=== PATIENT | male | born 1945 | race Caucasian/White ===

== ENCOUNTER 2019-01-19 09:49 | Emergency (ER) | payer BC, MEDICARE ==
[2019-01-19] MEDS: Aspirin 81 MG Tab.Chew PO ONE (10:00)
[2019-01-19] MEDS: Sodium Chloride 0.9% 1,000 ML IV ONE (10:05)
[2019-01-19] MEDS: Sodium Chloride 0.9% 10 ML Syringe FLUSH PRN (10:05)
[2019-01-19] MEDS: Nitroglycerin 0.4 MG Tab.SL SL ONE (10:11)
[2019-01-19] MEDS: Heparin Sodium 5,000 Units/ML Vial IVPUSH ONE (10:18)
[2019-01-19] MEDS: Morphine 2 MG/ML Syringe IVPUSH ONE (10:20)
[2019-01-19 10:23] VITALS: BP 116/64
[2019-01-19 10:23] LABS: ANION GAP 15.6 mmol/L (10-20); CHLORIDE,CL 99 mmol/L (98-107); SODIUM,NA 137 mmol/L (136-145)
--- NOTE | 2019-01-19 10:27 | EDM.PDOC ---
ED HPI GENERAL MEDICAL PROBLEM - General Chief Complaint: Chest Pain Stated Complaint: ER VISIT Time Seen by Provider: 01/19/19 09:54 Source of Information: Reports: Patient, Old Records, RN, RN Notes Reviewed History Limitations: Reports: No Limitations - History of Present Illness INITIAL COMMENTS - FREE TEXT/NARRATIVE: Patient is brought to the emergency room from [facility] for chest pain and possible NM. The patient states that a couple of days ago he started having some sweating and mild substernal chest pain. The patient felt it was from him doing physical therapy so he basically ignored it. The patient's symptoms have progressively gotten worse over the past 24 hours therefore he went to the clinic this morning. According to the EKG in the clinic it showed an acute NM so he was brought to the emergency room for further workup. Upon arrival the patient seemed to be slightly anxious, diaphoretic and rated his chest pain at 7 -8. The patient states he doesn't have any overt cardiac history, he states that he's had a CVA in the past. Old records are not available at the time of this dictation. The patient denies any neurological deficits. The patient does not feel short of breath. He is not aware of any peripheral edema. Onset Date: 01/17/19 Middle Chest Pain Score (Numeric/FACES): 8 - Related Data Allergies Allergy/AdvReac Type Severity Reaction Status Date / Time lactose AdvReac Diarrhea Verified 10/05/17 14:21 Home Meds: Home Meds Aspirin [Halfprin] 81 mg PO DAILY 10/05/17 [History] Cholecalciferol (Vitamin D3) [Vitamin D3] 1,000 unit PO DAILY 10/05/17 [History] Fexofenadine [Shira] 60 mg PO DAILY PRN 10/05/17 [History] Finasteride [Proscar] 5 mg PO DAILY 10/05/17 [History] Multivitamin [Multivitamins] 1 each PO DAILY 10/05/17 [History] Naproxen Sodium [Aleve] 220 - 440 mg PO DAILY PRN 10/05/17 [History] Nitroglycerin [Nitrostat] 1 tab SL ASDIRECTED PRN 10/05/17 [History] Omeprazole 20 mg PO BID PRN 10/05/17 [History] Simvastatin [Zocor] 40 mg PO BEDTIME 10/05/17 [History] Terbinafine [IJD: LamISIL AT 1% Crm] 1 applic TOP BID 10/05/17 [History] Past Medical History HEENT History: Reports: Allergic Rhinitis Cardiovascular History: Reports: CAD, High Cholesterol Respiratory History: Reports: Sleep Apnea Gastrointestinal History: Reports: Colon Polyp, Diverticulosis, GERD, Hiatal Hernia, Inflammatory Bowel Disease, Other (See Below) Other Gastrointestinal History: hx of kidney stones. esophagitis Genitourinary History: Reports: BPH Musculoskeletal History: Reports: Osteoarthritis, Other (See Below) Other Musculoskeletal History: actinic keratosis Neurological History: Reports: Vertigo Psychiatric History: Reports: Depression Endocrine/Metabolic History: Reports: Obesity/BMI 30+ Hematologic History: Reports: None Immunologic History: Reports: None Oncologic (Cancer) History: Reports: None Dermatologic History: Reports: Other (See Below) Other Dermatologic History: actinic keratosis - Past Surgical History Head Surgeries/Procedures: Reports: None HEENT Surgical History: Reports: None Cardiovascular Surgical History: Reports: None Respiratory Surgical History: Reports: None GI Surgical History: Reports: None, EGD Male Surgical History: Reports: None Endocrine Surgical History: Reports: None Neurological Surgical History: Reports: None Musculoskeletal Surgical History: Reports: Joint Replacement Other Musculoskeletal Surgeries/Procedures:: Bilateral total knees Oncologic Surgical History: Reports: None Dermatological Surgical History: Reports: None Social & Family History - Caffeine Use Caffeine Use: Reports: Coffee ED ROS GENERAL - Review of Systems Review Of Systems: See Below Constitutional: Reports: Weakness, Night Sweats. Denies: Fever Respiratory: Denies: Shortness of Breath, Cough Cardiovascular: Reports: Chest Pain, Blood Pressure Problem, Dyspnea on Exertion. Denies: Edema GI/Abdominal: Reports: Nausea. Denies: Abdominal Pain, Vomiting Skin: Reports: Diaphoresis Neurological: Reports: No Symptoms ED EXAM, GENERAL - Physical Exam Exam: See Below Exam Limited By: No Limitations General Appearance: Alert, Anxious Respiratory/Chest: No Respiratory Distress, Lungs Clear, Normal Breath Sounds Cardiovascular: Normal Peripheral Pulses, Regular Rate, Rhythm, No Edema Peripheral Pulses: 2+: Radial (L), Radial (R) GI/Abdominal: Normal Bowel Sounds, Soft, Non-Tender Neurological: Alert, Oriented, Normal Cognition Skin Exam: Warm, Dry, Intact, Normal Color Course - Vital Signs Last Recorded V/S: Last Vital Signs Temp 36.3 C 01/19/19 09:49 Pulse 88 01/19/19 09:49 Resp 20 01/19/19 09:49 BP 167/90 H 01/19/19 10:11 Pulse Ox 98 01/19/19 09:49 - Orders/Labs/Meds Orders: Active Orders 24 hr Category Date Time Status EKG 12 Lead [EKG Documentation Completion] [] STAT Care 01/19/19 09:55 Active Oxygen Therapy Adult [Oxygen Therapy, ED] [RC] Care 01/19/19 10:02 Active ASDIRECTED CBC WITH AUTO DIFF [HEME] Stat Lab 01/19/19 10:03 Received COMPREHENSIVE METABOLIC PN,CMP [CHEM] Stat Lab 01/19/19 09:25 Received CREATINE KINASE,CK [CHEM] Stat Lab 01/19/19 09:25 Received MAGNESIUM [CHEM] Stat Lab 01/19/19 09:25 Received Sodium Chloride 0.9% [Normal Saline] 1,000 ml Med 01/19/19 10:03 Active IV ONETIME Sodium Chloride 0.9% [Saline Flush] Med 01/19/19 09:55 Active 10 ml FLUSH ASDIRECTED PRN Peripheral IV Insertion Adult [OM.PC] Routine Oth 01/19/19 09:55 Ordered Medication Orders Sodium Chloride (Normal Saline) 1,000 mls @ 999 mls/hr IV ONETIME ONE Stop: 01/19/19 11:03 Last Admin: 01/19/19 10:05 Dose: 999 mls/hr Sodium Chloride (Saline Flush) 10 ml FLUSH ASDIRECTED PRN PRN Reason: Keep Vein Open Meds: Medications Generic Name Dose Route Start Last Admin Trade Name Freq PRN Reason Stop Dose Admin Sodium Chloride 1,000 mls @ 999 mls/hr 01/19/19 10:03 01/19/19 10:05 Normal Saline IV 01/19/19 11:03 999 mls/hr ONETIME ONE Administration Sodium Chloride 10 ml 01/19/19 09:55 Saline Flush FLUSH ASDIRECTED PRN Keep Vein Open Discontinued Medications Generic Name Dose Route Start Last Admin Trade Name Freq PRN Reason Stop Dose Admin Aspirin 324 mg 01/19/19 10:01 01/19/19 10:00 Aspirin PO 01/19/19 10:02 324 mg ONETIME ONE Administration Heparin Sodium (Porcine) 4,000 units 01/19/19 10:14 01/19/19 10:18 Heparin Sodium IVPUSH 01/19/19 10:15 4,000 units ONETIME ONE Administration Morphine Sulfate 1 mg 01/19/19 10:01 01/19/19 10:20 Morphine IVPUSH 01/19/19 10:02 1 mg ONETIME ONE Administration Nitroglycerin 0.4 mg 01/19/19 10:01 01/19/19 10:11 Nitrostat SL 01/19/19 10:02 0.4 mg ONETIME ONE Administration Departure - Departure Time of Disposition: 10:28 Disposition: DC/Tfer to [facility] 02 Reason for Transfer *Q: Primary PCI Indicated Condition: Good Clinical Impression: STEMI (ST elevation myocardial infarction) Forms: Interfacility Transfer EMTALA - Problem List Review Problem List Initiated/Reviewed/Updated: Yes - My Orders Last 24 Hours: My Active Orders 01/19/19 09:25 COMPREHENSIVE METABOLIC PN,CMP [CHEM] Stat CREATINE KINASE,CK [CHEM] Stat MAGNESIUM [CHEM] Stat 01/19/19 09:55 EKG 12 Lead [EKG Documentation Completion] [RC] STAT Sodium Chloride 0.9% [Saline Flush] 10 ml FLUSH ASDIRECTED PRN Peripheral IV Insertion Adult [OM.PC] Routine 01/19/19 10:02 Oxygen Therapy Adult [Oxygen Therapy, ED] [RC] ASDIRECTED 01/19/19 10:03 CBC WITH AUTO DIFF [HEME] Stat Sodium Chloride 0.9% [Normal Saline] 1,000 ml IV ONETIME - Assessment/Plan Last 24 Hours: My Active Orders 01/19/19 09:25 COMPREHENSIVE METABOLIC PN,CMP [CHEM] Stat CREATINE KINASE,CK [CHEM] Stat MAGNESIUM [CHEM] Stat 01/19/19 09:55 EKG 12 Lead [EKG Documentation Completion] [RC] STAT Sodium Chloride 0.9% [Saline Flush] 10 ml FLUSH ASDIRECTED PRN Peripheral IV Insertion Adult [OM.PC] Routine 01/19/19 10:02 Oxygen Therapy Adult [Oxygen Therapy, ED] [RC] ASDIRECTED 01/19/19 10:03 CBC WITH AUTO DIFF [HEME] Stat Sodium Chloride 0.9% [Normal Saline] 1,000 ml IV ONETIME Assessment:: STEMI Plan: Case discussed with Dr. Mccartney, Cardiology. Patient will be a direct admit to the [facility]. Patient will be sent via ALS ground. Stable for discharge with ALS. Patient agrees with transfer and wishes to proceed.
== END 2019-01-19 10:30 | disposition short-term general hospital (02) ==
LOC: VM.ED 09:49
DX: I21.3 ST elevation (STEMI) myocardial infarction of unspecified site (principal); E66.9 Obesity, unspecified; Z91.011 Allergy to milk products; Z79.82 Long term (current) use of aspirin
CPT/HCPCS: 80053; 82550; 83735; 85025; 93005; 96374; 96375; 99285-25; A9270-GY; J1644; J2270; J7030